=== PATIENT | male | born 1950 | race Caucasian/White ===

== ENCOUNTER → 2018-01-10 | Outpatient (CLI) | payer OTHER | LOC: FIMAGING 13:37 | PROVIDERS: ATTEND Internal Medicine Pulmonary Disease | DX: R91.1 Solitary pulmonary nodule (principal); I25.10 Atherosclerotic heart disease of native coronary artery without angina pectoris ==

== ENCOUNTER 2018-02-17 10:04 | Day surgery (SDC) | payer OTHER ==
[2018-02-17] MEDS ORDERED: MEPERIDINE 25 MG/ML SYR IVP PRN (10:12)
[2018-02-17] MEDS ORDERED: MIDAZOLAM 2 MG/2 ML VIAL IVP PRN (10:12)
[2018-02-17] MEDS ORDERED: HEPARIN 10,000 UNIT/10 ML MDV (1,000 UNIT/ML) IVP PRN (10:12)
[2018-02-17] MEDS ORDERED: fentaNYL 100 MCG/2 ML INJ IVP PRN (10:12)
[2018-02-17] MEDS ORDERED: ALTEPLASE 2 MG VIAL IVP PRN (10:12)
[2018-02-17] MEDS ORDERED: GLUCAGON HCL 1 MG VIAL IVP PRN (10:12)
[2018-02-17] MEDS ORDERED: FLUMAZENIL 0.5 MG/5 ML MDV IVP PRN (10:12)
[2018-02-17] MEDS ORDERED: NALOXONE HCL 0.4 MG/ML INJ IVP PRN (10:12)
[2018-02-17] MEDS ORDERED: PROTAMINE SULFATE 50 MG/5 ML VIAL IVP PRN (10:12)
[2018-02-17] MEDS ORDERED: NS 1,000 ML IV SCH (10:15)
--- NOTE | 2018-02-17 12:29 | PDPROPOC ---
Sedation Plan of Care Sedation Plan of Care: vital signs stable, mental status noted, patient educated of risks, benefits, alternatives, patient can tolerate sedation ASA Classification: ASA 2 Planned drugs: fentanyl, midazolam Mallampati Score: Class 2 Mallampati Reference Image: Patient passed 3-3-2 rule?: Yes
--- NOTE | 2018-02-17 12:30 | PDGENHP ---
History & Physical Chief Complaint: Increasing RML pulmonary nodule History of Present Illness: Increasing RML pulmonary nodule Pertinent Past, Social, Family History: rheumatoid arthritis. PMH sig for kidney stones and migraines Cardiorespiratory Assessment: Clear lungs. No wheezing. RRR
[2018-02-17] MEDS ORDERED: ONDANSETRON 4 MG/2 ML VIAL IVP PRN (13:47)
[2018-02-17] MEDS ORDERED: oxyCODONE IR 5 MG TAB PO PRN (14:11)
[2018-02-17 16:15] VITALS: BP 105/51
--- NOTE | 2018-02-17 16:43 | PDRADPN ---
Radiology Procedure Note Date of Procedure: 02/17/18 Radiologist: Bunny Lopez Manager Cosmetics(s): Dashawn HAAS RT Anesthesia: IV Sedation (Versed and fentanyl) Pre-op Diagnosis: RML pulmonary nodule Post-op Diagnosis: RML pulmonary nodule Indication: RML pulmonary nodule Procedure: Ct guided RML lung bx Finding(s): Tiny pneumothorax and small pulmonary hemorrhage Inf/Abcess present in the surg proc area at time of surgery?: No Depth: Organ Space (Right middle lobe) EBL: Minimal Complications: Tiny pneumothorax and small pulmonary hemorrhage Drains: Other (None)
== END 2018-02-17 16:45 | disposition home or self-care (01) ==
LOC: FIMAGING 10:04
PROVIDERS: ATTEND Radiology Diagnostic Radiology
PROC: BB271ZZ Computerized Tomography (CT Scan) of Right Tracheobronchial Tree using Low Osmolar Contrast (ICD-10-PCS; principal; 2018-02-17 14:05)
PROC: 0BB Respiratory System, Excision (ICD-10-PCS; principal; 2018-02-17 14:05)
DX: C34.2 Malignant neoplasm of middle lobe, bronchus or lung (principal); M06.9 Rheumatoid arthritis, unspecified; Z87.891 Personal history of nicotine dependence; Z87.442 Personal history of urinary calculi
CPT/HCPCS: J2250; J2310; J3010

== ENCOUNTER 2018-03-14 05:57 | Inpatient (IN) | payer OTHER ==
[2018-03-14] MEDS ORDERED: BUPIVACAINE 0.5% 30 ML SDV ONE (06:35)
[2018-03-14] MEDS ORDERED: THROMBIN (BOVINE) 5,000 UNIT VIAL TP ONE (06:36)
[2018-03-14] MEDS ORDERED: EPINEPHrine 1 MG/ML INJ ONE (06:36)
[2018-03-14] MEDS ORDERED: ceFAZolin 2 GM/SWFI 2 GM/20 ML SYR IVP ONE (06:45)
[2018-03-14] MEDS ORDERED: LIDOCAINE 1% 2 ML INJ ID PRN (06:46)
[2018-03-14] MEDS ORDERED: LR 1,000 ML IV ONE (06:46)
--- NOTE | 2018-03-14 07:10 | PDANEPAE ---
ANE History of Present Illness 67 year old with lung mass ANE Past Medical History - Cardiovascular History Hx Hypertension: No Hx Arrhythmias: No Hx Chest Pain: No Hx Coronary Artery / Peripheral Vascular Disease: No Hx CHF / Valvular Disease: No Hx Palpitations: No - Pulmonary History Hx COPD: No Hx Asthma/Reactive Airway Disease: No Hx Recent Upper Respiratory Infection: No Hx Oxygen in Use at Home: No Hx Sleep Apnea: No Sleep Apnea Screening Result - Last Documented: Negative Pulmonary History Comment: R LUNG MASS-DENIES SOB. BRONCHITIS Jan - Neurologic History Hx Cerebrovascular Accident: No Hx Seizures: No Hx Dementia: No - Endocrine History Hx Diabetes: No - Renal History Hx Renal Disorders: No Renal History Comment: 12/2014- R kidney stone removed and temporary stent, removed. HX of stones. - Liver History Hx Hepatic Disorders: No - Neurological & Psychiatric Hx Hx Neurological and Psychiatric Disorders: No - Cancer History Hx Cancer: No - Congenital Disorder History Hx Congenital Disorders: No - GI History Hx Gastrointestinal Disorders: No - Other Health History Other Health History: OCC Mild ringing and decreased hearing L ear.Palendromic rheumatism, RA Ganglion cysts both feet. Several missing teeth - Chronic Pain History Chronic Pain: Yes (joints) - Surgical History Prior Surgeries: endoscopic sinus sx 5-15. 12/15-R kidney stone removal. CYST EXCISION R WRIST. 2011-R ing. inguinal hernia. tonsils as child. 1962- L ring finger Sx 2002-L nasal polyp removed. R INDEX FINGER SX ANE Review of Systems Review of systems is: negative Review of Systems: - Exercise capacity METS (RN): 4 METS ANE Patient History - Allergies Allergies/Adverse Reactions: Sulfa (Sulfonamide Antibiotics) [Sulfa(Sulfonamide Antibiotics)] Allergy ( Verified 03/08/18 10:28) RASH/ITCHING - Home Medications Home Medications: Hydroxychloroquine Sulfate [Plaquenil 200 mg (*)] 200 mg PO DAILY 02/16/18 [ Last Taken 03/12/18] Simvastatin [Zocor] 40 mg PO HS 02/16/18 [Last Taken 2 Months Ago ~01/04/18] oxyCODONE IR [Oxycodone Ir (*)] 5 mg PO Q6 PRN 02/16/18 [Last Taken 1 Week Ago ~ 03/07/18] Acetaminophen/ASA/Caffeine [Excedrin Tablet (*)] 1 each PO DAILY PRN 02/17/18 [ Last Taken 1 Week Ago ~03/07/18] Ibuprofen [Motrin (*)] 400 mg PO Q8 PRN 03/06/18 [Last Taken 1 Week Ago ~] - NPO status NPO Status: no food or drink >8 hours NPO Since - Liquids (Date): 03/14/18 NPO Since - Liquids (Time): 04:30 NPO Since - Solids (Date): 03/13/18 NPO Since - Solids (Time): 19:00 - Anes Hx Anes Hx: no prior problems - Smoking Hx Smoking Status: Former smoker - Family Anes Hx Family Hx Anesthesia Complications: none ANE Labs/Vital Signs - Vital Signs Blood Pressure: 140/86 Heart Rate: 67 Respiratory Rate: 16 O2 Sat (%): 96 Height: 177.8 cm Weight: 82.1 kg ANE Physical Exam - Airway Neck exam: FROM Mallampati Score: Class 1 Mouth exam: normal dental/mouth exam - Pulmonary Pulmonary: no respiratory distress - Cardiovascular Cardiovascular: regular rate and rhythym - ASA Status ASA Status: III ANE Anesthesia Plan Anesthesia Plan: general endotracheal anesthesia Lines/Monitors: arterial line Specialized Airway: double lumen tube
[2018-03-14] MEDS ORDERED: MIDAZOLAM 2 MG/2 ML VIAL IVP ONE (07:11)
--- NOTE | 2018-03-14 07:21 | PDHPUP ---
History & Physical Update H&P update statement: This history and physical update is based on an assessment of the patient which was completed after admission or registration (within 24 hours), but prior to the surgery/procedure. H&P update: H&P reviewed & patient examined, no change in patient's condition since H&P completed
[2018-03-14] MEDS ORDERED: PROPOFOL 200 MG/20 ML VIAL ONE (07:38)
[2018-03-14] MEDS ORDERED: fentaNYL 100 MCG/2 ML INJ ONE ×2 (10:55→11:19)
[2018-03-14] MEDS ORDERED: PROMETHAZINE HCL 25 MG/ML INJ IVP PRN (11:01)
[2018-03-14] MEDS ORDERED: ONDANSETRON 4 MG/2 ML VIAL IVP PRN ×2 (11:01→11:02)
[2018-03-14] MEDS ORDERED: NALOXONE HCL 0.4 MG/ML INJ IVP PRN (11:01)
--- NOTE | 2018-03-14 11:01 | POSTOPPROG ---
Post Op Note Date of Operation: 03/14/18 Surgeon: Carl Darling Lithographic Press Operator: Nara Valdes Anesthesiologist: Parth Quan Anesthesia: GET(General Endotracheal) Pre-op Diagnosis: RML lung mass, carcinoid Post-op Diagnosis: same Procedure: mediastinoscopy, R VATS, RML lobectomy, and COREEN wedge biopsy Findings: benign mediastinal LNs; per path, tumor in specimen but hard to palpate Inf/Abcess present in the surg proc area at time of surgery?: No EBL: Minimal Complications: none Drains: Other (1 28 Fr chest tube) Specimen(s): multiple to pathology
[2018-03-14] MEDS ORDERED: HYDROmorphONE/DILAUDID 1 MG/ML INJ IVP PRN ×2 (11:02→11:30)
--- NOTE | 2018-03-14 11:02 | POSTANESTH ---
Post Anesthetic Evaluation Cardiovascular Status: Normal, Stable Respiratory Status: Normal, Stable Level of Consciousness/Mental Status: Mildly Sleepy, Arousable Pain Control: Adequate, Prn Tx Ordered Nausea/Vomiting Control: Adequate, Prn Tx Ordered Complications Possibly Related to Anesthesia: None Noted
[2018-03-14] MEDS ORDERED: D5W 1/2 NS W/ 20 KCl/L 1,000 ML IV SCH (11:15)
[2018-03-14] MEDS ORDERED: HYDROmorphONE/DILAUDID 2 MG/ML INJ ONE (11:19)
[2018-03-14] MEDS: fentaNYL 100 MCG/2 ML INJ IVP PRN ×2 (11:21→11:29)
[2018-03-14] MEDS: HYDROmorphONE/DILAUDID 2 MG/ML INJ IVP PRN ×3 (11:24→11:47)
[2018-03-14] MEDS ORDERED: ONDANSETRON 4 MG/2 ML VIAL ONE (12:37)
--- NOTE | 2018-03-14 14:22 | PDMN ---
Medical Necessity Medical necessity: [facility] IP only surgery; cpt 21772 Thoracotomy, 61882 Lobectomy (R VATS, RML Lobectomy, COREEN wedge biopsy w/mediastinoscopy)
[2018-03-14] MEDS: OXYCODONE/APAP 5/325 TAB PO PRN ×2 (15:10→23:15)
[2018-03-14] MEDS: KETOROLAC 15 MG/1 ML SDV IVP SCH ×3 (17:01→23:18)
--- NOTE | 2018-03-14 17:15 | ASMTCMCOM ---
CM Note CM Note Notes: 67yr old male admitted after lung biopsy demonstrating lung CA tumor. Patient had a R VATS procedure, lobectomy. CM to follow for possible discharge needs. Date Signed: 03/14/2018 02:45 PM Electronically Signed By:Diana Alarcon LCSW
[2018-03-14] MEDS: ATORVASTATIN CALCIUM 20 MG TAB PO SCH (20:17)
[2018-03-14] MEDS: DOCUSATE SODIUM 100 MG CAP PO SCH (20:17)
[2018-03-14] MEDS ORDERED: NON-FORMULARY NEW DRUG (Simvastatin [Zocor] 40 MG) PO SCH (21:00)
[2018-03-15] MEDS: DOCUSATE SODIUM 100 MG CAP PO SCH ×2 (02:20→20:45)
[2018-03-15] MEDS: KETOROLAC 15 MG/1 ML SDV IVP SCH ×3 (05:26→17:47)
--- NOTE | 2018-03-15 08:25 | SOAPPROG ---
SOAP Progress Note Assessment/Plan: Assessment/Plan: 67 Y M s/p mediastinoscopy and R VATS c RML lobectomy and RUL wedge biopsy. POD#1. Overall doing well. No air leak. Pain mostly controlled. Tolerating regular diet. Pathology pending. Dispo: pending. Possibly tomorrow if chest tubes can come out. S: didn't sleep great, but better after having some pain meds. No SOB. O: alert, nad neck inc cdi ctab no air leak rrr abd soft wounds well dressed 03/15/18 08:19 Objective: Vital Signs Temp Pulse Resp BP Pulse Ox 36.7 C 91 16 107/66 96 03/14/18 23:15 03/14/18 23:15 03/14/18 23:15 03/14/18 23:15 03/14/18 23:15 Laboratory Results 03/15/18 05:29 03/15/18 05:29 03/14/18 03/15/18 03/16/18 05:59 05:59 05:59 Intake Total 3827 Output Total 1562 Balance 2265 ICD10 Worksheet Patient Problems: Problems Problem Status Onset Lung mass Acute - ICD10 Problem Qualifiers (1) Lung mass
[2018-03-15] MEDS: HYDROXYCHLOROQUINE SULFATE 200 MG TAB PO SCH (09:29)
[2018-03-15] MEDS: OXYCODONE/APAP 5/325 TAB PO PRN (09:42)
[2018-03-15] MEDS ORDERED: BISACODYL 10 MG SUPP PR PRN (10:56)
[2018-03-15] MEDS ORDERED: MAGNESIUM HYDROXIDE 30 ML UDCUP PO PRN (10:56)
[2018-03-15] MEDS ORDERED: POLYETHYLENE GLYCOL 3350 17 GM PKT PO PRN (10:56)
[2018-03-15] MEDS ORDERED: LACTULOSE 20 GM/30 ML UDCUP PO PRN (10:56)
[2018-03-15] MEDS: SENNOSIDES/DOCUSATE SODIUM TAB PO SCH ×2 (11:34→20:45)
[2018-03-15] MEDS: ATORVASTATIN CALCIUM 20 MG TAB PO SCH (20:46)
[2018-03-16] MEDS: KETOROLAC 15 MG/1 ML SDV IVP SCH ×3 (00:08→11:17)
[2018-03-16] MEDS: HYDROXYCHLOROQUINE SULFATE 200 MG TAB PO SCH (08:19)
[2018-03-16] MEDS: SENNOSIDES/DOCUSATE SODIUM TAB PO SCH (08:19)
[2018-03-16] MEDS: DOCUSATE SODIUM 100 MG CAP PO SCH (08:19)
[2018-03-16] MEDS ORDERED: BUPIVACAINE 0.25% 10 ML SDV MISC ONE (08:30)
[2018-03-16] MEDS ORDERED: ENOXAPARIN 40 MG/0.4 ML SYR SC SCH (09:00)
--- NOTE | 2018-03-16 12:19 | SOAPPROG ---
MICHELA Progress Note Assessment/Plan: Assessment: 67 Y M s/p mediastinoscopy and R VATS c RML lobectomy and RUL wedge biopsy. POD# 2 Path pending S: Doing well overall. Eager to be discharged. Biggest complaint is constipation. O: Alert Afebrile Neck incision is cdi RRR CTA bilaterally, no air leak. Plan: Chest xray shows no pneumo. Will d/c chest tube today and discharge home pending follow up xray. Miralax before discharge. 03/16/18 12:16 Objective: Vital Signs Temp Pulse Resp BP Pulse Ox 36.8 C 93 16 139/88 H 97 03/16/18 00:00 03/16/18 08:35 03/16/18 08:35 03/16/18 08:35 03/16/18 08:35 Laboratory Results 03/15/18 05:29 03/15/18 05:29 03/15/18 03/16/18 03/17/18 05:59 05:59 05:59 Intake Total 3827 500 Output Total 1562 876 Balance 2195 -299 ICD10 Worksheet Patient Problems: Problems Problem Status Onset Lung mass Acute
[2018-03-16 12:37] VITALS: BP 126/65
[2018-03-16] MEDS ORDERED: PNEUMOC 13-VAL CONJ-DIP CRM/PF 0.5 ML SYR (PREVNAR 13) IM ONE (14:14)
--- NOTE | 2018-03-22 18:16 | GOP ---
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 PROCEDURE PERFORMED: Mediastinoscopy. FINDINGS: The patient was found to have some benign lymph nodes in the mediastinum with no evidence of metastatic disease. DESCRIPTION OF PROCEDURE: The patient was taken to the operating room. He received satisfactory gen eral endotracheal anesthesia by Dr. Quan. He was placed in the supine position, prepped and draped i n the usual sterile fashion. A low collar-type incision was made and carried through the platysma an d subcutaneous tissue. Strap muscles were in the midline. Pretracheal space was entered, dissection extended down along the trachea. No palpable major abnormalities were encountered. Media stinoscope was introduced with careful dissection. Some lymph nodes along the right peritracheal are a were dissected free and sent for biopsy. Hemostasis was obtained with electrocautery. The wound w as irrigated. Some topical thrombin was placed in the cavity. Mediastinoscope was removed. After g ood hemostasis was achieved, strap muscles were approximated with 3-0 Vicryl as was the platysma and subcutaneous tissue and the skin with a 4-0 Monocryl subcuticular stitch. He tolerated the procedure well. There were no complications. /[id number]/MODL
--- NOTE | 2018-03-22 18:26 | GOP ---
[f rep st] OPERATIVE REPORT DATE OF OPERATION: 03/14/2018 SURGEON: Carl Darling MD CUBE MACHINE TENDER: AMARIS Torre ANESTHESIOLOGIST: Dr. Quan. 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 PROCEDURE PERFORMED: Right video-assisted thoracoscopic surgery with right middle lobectomy and righ t upper lobe wedge resection. FINDINGS: Patient was found to have a 2 cm carcinoid tumor in the middle lobe. This was difficult t o palpate and define initially, was confirmed in the pathologic specimen. ESTIMATED BLOOD LOSS: Less than 25 cc. DESCRIPTION OF PROCEDURE: The patient was taken to the operating room where he received satisfactory general endotracheal anesthesia by Dr. Quan. He was placed in the left lateral decubitus position, prepped and draped in the usual sterile fashion. A short incision was made in the 6th intercostal space in the midaxillary line. A trocar was introdu brea. Right lung had been deflated. Adequate visualization was obtained with introduction of the tho racoscope. Two other trocars were placed under direct vision. The upper and middle lobe were separa arcadio, as well as the lower lobe. The middle lobe fissure was developed by dissecting the tissue over the pulmonary artery. The pulmonary artery branch to the middle lobe was isolated. It was then divided with the Endo-WALLY s tapler, allowing us to retract well up on the middle lobe. Anteriorly, the venous branch to the midd le lobe was isolated, it from the superior pulmonary vein. This too was divided with the Endo-WALLY stapler, leaving only the attachments to the upper lobe and the bronchus. The bronchus was isolated. It was cross clamped with a vascular clamp. Remaining 2 lobes were reinflated and appeare d to work well. The bronchus was then divided with a WALLY stapler and the remaining attachments of th e upper lobe were divided with a WALLY stapler. The specimen was removed and brought out through one o f the trocar sites, which had been slightly enlarged, with the lobe placed in a specimen bag, it was difficult to palpate the tumor and the specimen was sent to Pathology. In the interim, the lower segment of the upper lobe was isolated where it was adjacent to the middle lobe. Additional wedge biopsy was taken of the right upper lobe for additional tissue. This was don e with the Endo-WALLY stapler. The staple lines were then tested under water and appeared to be airtig ht. The wound was irrigated. One 28 chest tube was brought in through separate trocar site and secu red to the skin with silk sutures and the lung was re-expanded. Some hilar lymph nodes, interlobar n odes were dissected free and sent out as separate specimen. The mini thoracotomy site was then close d with a running 0 Vicryl suture for the musculature, 2-0 Vicryl for the subcu, and a 4-0 Monocryl santos bcuticular stitch for the skin, and the remaining trocar sites were closed with 4-0 Monocryl subcutic ular sutures. All wounds were infiltrated with 0.5% Marcaine, 0.5% Marcaine intercostal block was do ne. The pathology specimen was returned as containing a carcinoid tumor, which was confirmed. The p james was then taken to the recovery room in good condition. He tolerated the procedure well. COMPLICATIONS: There were no complications. /[id number]/MODL
--- NOTE | 2018-04-19 12:51 | GDS ---
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 PROCEDURES: 1. Mediastinoscopy. 2. Right video-assisted thorascopic surgery with right middle lobectomy and right upper lobe wedge r esection. INTRAOPERATIVE FINDINGS: Patient was found to have benign lymph nodes in the mediastinum with no brandan dence of metastatic disease. He was also found to have a 2 cm carcinoid tumor in the middle lobe. I t was difficult to palpate and define initially and ultimately was confirmed to be in the specimen by Pathology. The lower segment of the upper lobe was isolated where it was adjacent to the middle lob e, and an additional wedge biopsy was taken for additional tissue. HOSPITAL COURSE: The patient is a 67-year-old male who underwent mediastinoscopy and VATS procedure with lobe resection for a carcinoid tumor. The procedure was uncomplicated, and he tolerated it well . The patient's postoperative course was uneventful. Pain was controlled. He had no air leak on posto perative day 1. Chest tube output decreased. Chest tubes were removed without event. Post chest tu be removal x-rays showed an expanded lung without complication. DISCHARGE INSTRUCTIONS: Patient was discharged in stable condition to home. Limitations in wound ca re were discussed, and he is to follow up in our office next week with a new chest x-ray. He will al so be following up with Oncology. /[id number]/MODL
== END 2018-03-16 14:40 | disposition home or self-care (01) | DRG 165 ==
LOC: F3N 05:57 → F2N 13:48
PROVIDERS: ADMIT Surgery; ATTEND Surgery
PROC: 07B74ZX Excision of Thorax Lymphatic, Percutaneous Endoscopic Approach, Diagnostic (ICD-10-PCS; principal; 2018-03-14 07:30)
PROC: 0BBC4ZX Excision of Right Upper Lung Lobe, Percutaneous Endoscopic Approach, Diagnostic (ICD-10-PCS; principal; 2018-03-14 07:30)
PROC: 0BTD4ZZ Resection of Right Middle Lung Lobe, Percutaneous Endoscopic Approach (ICD-10-PCS; principal; 2018-03-14 07:30)
DX: C7A.090 Malignant carcinoid tumor of the bronchus and lung (principal); J45.909 Unspecified asthma, uncomplicated; Z23 Encounter for immunization
CPT/HCPCS: G0009; J0171; J0690; J1170; J1650; J1885; J2250; J2405; J2704; J3010

== ENCOUNTER → 2018-03-22 | Outpatient (CLI) | payer OTHER | LOC: FIMAGING 16:13 | PROVIDERS: ATTEND Surgery | DX: Z08 Encounter for follow-up examination after completed treatment for malignant neoplasm (principal); Z90.2 Acquired absence of lung [part of]; Z85.118 Personal history of other malignant neoplasm of bronchus and lung ==

== ENCOUNTER → 2018-03-30 | Outpatient (CLI) | payer OTHER | LOC: FIMAGING 10:26 | PROVIDERS: ATTEND Surgery | DX: Z48.89 Encounter for other specified surgical aftercare (principal); Z86.018 Personal history of other benign neoplasm; Z90.2 Acquired absence of lung [part of] ==

== ENCOUNTER → 2018-09-11 | Outpatient (CLI) | payer OTHER | LOC: FIMAGING 09:56 | PROVIDERS: ATTEND Specialist | DX: N20.0 Calculus of kidney (principal); N20.1 Calculus of ureter ==

== ENCOUNTER → 2018-09-29 | Outpatient (CLI) | payer OTHER | LOC: FIMAGING 08:19 | PROVIDERS: ATTEND Specialist | DX: N20.0 Calculus of kidney (principal) ==

== ENCOUNTER → 2018-10-10 | Outpatient (CLI) | payer OTHER | LOC: FIMAGING 09:07 | PROVIDERS: ATTEND Specialist | DX: N20.0 Calculus of kidney (principal); N20.1 Calculus of ureter ==

== ENCOUNTER → 2018-12-04 | Outpatient (CLI) | payer OTHER, MEDICARE | LOC: FLAB 09:30 → FIMAGING 09:30 → EDSTATUS 09:31 | PROVIDERS: ATTEND Specialist | DX: R31.0 Gross hematuria (principal); N20.0 Calculus of kidney ==